=== PATIENT | male | born 1975 | race Caucasian/White ===

== ENCOUNTER 2016-02-18 11:32 | Observation (INO) | payer OTHER ==
[~2016-02-18] VITALS: Ht 193 cm; Wt 97.5 kg
[2016-02-18] VITALS (7 sets, daily range): BP systolic 128–150; BP diastolic 74–96; PULSE 16–82; RESP 16–20; O2SAT 97–99
--- NOTE | 2016-02-18 11:33 | ED.REPORT ---
HPI-Chest Pain 40 and Over Date of Service Feb 18, 2016 ED Provider: Dr. Rider 40 year old male with non-radiating R sided chest pain that has been intermittent for 2 days. At onset of symptoms the patient took 3 ibuprofen which relieved his symptoms. The pain then returned in the morning with an associated headache. The symptoms are exacerbated with laying flat. Today he was seen at the [facility] where he had an ECG which was noted to have ST changes and an elevated troponin. He took 2 ibuprofen this morning and was given 3 ASA at the [facility]. Prior to his chest pain the patient had 3 days of fever, chills and swollen lymph nodes. He currently has no chest pain and denies any other symptoms. Pt's father has a hx of CAD. Nursing Notes Stated Complaint: CHEST PAIN Nursing Notes Reviewed: Yes Allergies: Coded Allergies: No Known Allergies (Unverified , 02/18/16) General Time Seen by MD: 11:33 Chief Complaint Chest pain Hx Obtained From: Patient, EMS Arrived By: Ambulance Sudden in Onset?: No Onset Occurred: 2 days ago Symptom Duration: Since onset Location: : Chest right Quality: Painful Radiation: : Does not radiate Severity: Current: No pain currently Severity: Maximum: Moderate Associated with: Reports: Fever, Denies: Shortness of Breath, Vomiting Pertinent Negative: Relieved by nothing Recent Healthcare: Recent doctor visit Risk Factors )( CAD Risk Stratification Risk factors reviewed )( TAD Risk Stratification Risk factors reviewed )( PE Risk Stratification Risk factors reviewed Past Medical History Past Medical History None Past Surgical History None Smoking History Unknown if Ever Smoker Occupation [place] [employer] Ambulatory Status Independent Review of Systems Basic Review of Systems Eyes: Vision NL, No discharge ENT: Hearing NL, No pain, No nasal congestion, No pharyngeal pain Constitutional: Reports: Chills, Fever Respiratory: Denies: Non-productive cough, Shortness of breath Cardiovascular: Reports: Chest pain, Denies: Palpitations GI: Denies: Diarrhea, Vomiting Neurologic: Reports: Headache, Denies: Change LOC Complete sys rev & neg: except as marked. Physical Exam Initial Vital Signs Vital Signs (First) Date Time Temp Pulse Resp B/P Pulse Ox O2 Delivery O2 Flow Rate FiO2 02/18/16 11:39 36.7 16 16 150/85 02/18/16 13:00 98 Room Air Initial VS: Reviewed Head / Eyes: Atraumatic, Normocephalic, PERRL ENT: Mucous membranes moist, Conjunctiva normal, No scleral icterus Neck: Supple, Non-tender, Full range of motion Extremities: Vascular intact, Neuro intact, No swelling, No tenderness Skin: Warm, Dry, No cyanosis Neurologic: Alert, Oriented, Nonfocal Psychiatric: Mood/affect normal, Behavior normal, Normal thought content General/Constitutional: Awake, Alert Respiratory / Chest: Breath sounds NL, Breath sounds = bilat, No respiratory distress, No rales, No rhonchi, No wheezing, No stridor, No chest tenderness Cardiovascular: Heart rate NL, Regular rhythm, Heart sounds NL, No murmurs, No rubs (No pericardial rub with careful auscultation), Peripheral circulation NL, Pulses = bilaterally Abdomen: Atraumatic, Soft, Non-tender Interpretation & Diagnostics Interpretation & Diagnostics: Echocardiogram: Interpretation Summary 1) Normal left ventricular thickness, size, wall motion, diastolic function, and systolic function (EF 60-65%). 2) Normal right ventricular size and function. 3) No significant valvular abnormalities. 4) No pericardial effusion present. 5) No prior Echo available for comparison. Lab Results Interpretation Result Diagram: 02/18/16 1245 02/18/16 1245 Test 02/18/16 12:45 White Blood Count 10.7th/mm3 (3.8-10.1) Red Blood Count 4.75mil/mm3 (4.40-5.80) Hemoglobin 13.8g/dL (13.8-17.2) Hematocrit 39.6% (41.0-50.0) Mean Corpuscular Volume 83.4fL (81-100) Mean Corpuscular Hemoglobin 29.1pg (27.0-35.0) Mean Corpuscular Hemoglobin Concent 34.8% (32.0-37.0) Red Cell Distribution Width 12.0% (12.3-15.4) Platelet Count 189bil/L (150-400) Neutrophils (%) (Auto) 78.3% (40-74) Lymphocytes (%) (Auto) 14.2% (14-46) Monocytes (%) (Auto) 6.1% (4-12) Eosinophils (%) (Auto) 0.7% (0-5) Basophils (%) (Auto) 0.3% (0-3) Erythrocyte Sedimentation Rate 25mm/hr (0-15) Prothrombin Time 10.1sec (8.1-12.5) Prothromb Time International Ratio 0.95ratio D-Dimer < 0.5mg/L (<0.50) Sodium Level 140mEq/L (134-144) Potassium Level 4.0mEq/L (3.5-5.2) Chloride Level 102mEq/L (97-108) Carbon Dioxide Level 24mmol/L (18-29) Blood Urea Nitrogen 16mg/dL (6-20) Creatinine 0.80mg/dL (0.76-1.27) Estimat Glomerular Filtration Rate 115mL/min (>59) Glucose Level 104mg/dL (60-99) Lactic Acid Level 1.1mmol/L (0.4-2.0) Calcium Level 9.3mg/dL (8.5-10.1) Magnesium Level 1.9mg/dL (1.6-2.6) Total Bilirubin 0.5mg/dL (0.0-1.2) Aspartate Amino Transf (AST/SGOT) 43U/L (0-50) Alanine Aminotransferase (ALT/SGPT) 21U/L (0-44) Alkaline Phosphatase 45U/L (25-150) Total Creatine Kinase 344U/L (21-232) Creatine Kinase MB 28.5ng/mL (0.0-10.4) Creatine Kinase MB % 8.3% (0.0-5.0) Troponin T 0.806ug/L (0.0-0.011) C-Reactive Protein 2.0mg/dL (0.0-0.5) Total Protein 7.6g/dL (6.4-8.4) Albumin 3.9g/dL (3.4-5.0) Hold Ball Top Tube Received (Received) General Lab Results Interp 1: Labs reviewed ECG Interpretation ECG Interpretation: Diffuse minor ST changes, probable pericarditits. Time: 11:40 Interpreted by: ED physician Normal ECG Interpretation: Normal rate (76), Normal sinus rhythm X-Ray Chest Interpretation Chest Xray Interpretation: IMPRESSION: No acute pulmonary process. Dictated by: Shwetha Agosto M.D. on 02/18/2016 at 14:07 View: Portable, 1 view Interpretation / Wet Read by: Interpret - Radiologist Re-Eval/Medical Decision Time of Eval: 12:58 Re-Evaluation/Progress Note: Pt updated of plan for ECHO. Time of Eval: 15:26 Re-Evaluation/Progress Note: Pt still without pain. Pt updated of labs, ECG, imaging and plan for admission. Recommended admission due to elevated troponin. Pt understands and agrees with plan. All questions addressed. Consultation #1: Referral / Consult Name: Izzy De Souza MD Consulted With: Cardiology Call Returned at: 12:47 Note: ECHO would be appropriate in the ED. Consultation #2: Referral / Consult Name: Izzy De Souza MD Consulted With: Cardiology Call Returned at: 15:23 Re Recording Mixer: Will see patient Note: Recommends admission. Consultation #3: Referral / Consult Name: Ivette Fang DO Consulted With: Hospitalist Call Returned at: 15:51 Re Recording Mixer: Will see patient, Agrees with eval, Agrees with plan, Accepts admit Note: Resident working with Dr. Boone Counseled Regarding: Diagnosis, Lab results, Need for admission Discharge & Departure Primary Impression: Acute myopericarditis Ruled Out: Cardiac tamponade, STEMI (ST elevation myocardial infarction) Disposition: ADMITTED TO HOSPITAL Discharge Condition All VS Reviewed: Yes Scribe Attestation Portions of this note were transcribed by Sara Snowden. I, (Dr. Rider) personally performed the history, physical exam and medical decision-making; I reviewed and confirmed the accuracy of the information in the transcribed note. Signed by: Sara Snowden. 02/18/2016, 1541 Pretty Rider MD Feb 18, 2016 11:33 Sara Snowden Feb 18, 2016 11:47 reviewed and confirmed the accuracy of the information in the transcribed note. Signed by: Sara Snowden. 02/18/2016, 1541 Pretty Rider MD Feb 18, 2016 11:33 Sara Snowden Feb 18, 2016 11:47
[2016-02-18 12:52] LABS: BASOPHILS % (AUTO) 0.3 % (0-3); EOSINOPHILS % (AUTO) 0.7 % (0-5); MONOCYTES % (AUTO) 6.1 % (4-12); Mean Corpuscular Hemoglobin 29.1 pg (27.0-35.0); Mean Corpuscular Volume 83.4 fL (81-100); NEUTROPHILS % (AUTO) 78.3 % (40-74); Platelet Count 189 bil/L (150-400)
[2016-02-18 13:23] LABS: Magnesium 1.9 mg/dL (1.6-2.6)
[2016-02-18 13:25] LABS: TROPONIN T 0.806 ug/L (0.0-0.011)
--- NOTE | 2016-02-18 14:09 | DRSVH ---
PROCEDURE: X-RAY CHEST ONE VIEW, PORTABLE ([id number]) INDICATIONS: chest pain TECHNIQUE: One view of the chest was acquired. COMPARISON: None. FINDINGS: Surgical changes and devices: None. Lungs and pleura: No pleural effusions or pneumothorax. Lungs are clear. Mediastinum: Mediastinal contours appear normal. Heart size is normal. Bones and chest wall: No suspicious bony lesions. Overlying soft tissues appear unremarkable. IMPRESSION: No acute pulmonary process. Dictated by: Shwetha Agosto M.D. on 02/18/2016 at 14:07 Approved by: Shwetha Agosto M.D. on 02/18/2016 at 14:07
--- NOTE | 2016-02-18 15:21 | DRSVH ---
[facility] [address] [place] [address] Echocardiogram Report Name: KAYLENE CASTILLO te: 02/18/2016 Height: 76 in Hospital Exam Location: [facility] Weight: 223 lb Gender: Male BSA: 2.3 m2 : 1975 Age: 40 yrs BP: 150/85 mm Hg Reason For Study: CHEST PAIN, EVAL FOR POSSIBLE PERICARDITIS Performed By: Quyen Mckay Referring Physician: AMARI RAMIREZ Interpretation Summary 1) Normal left ventricular thickness, size, wall motion, diastolic function, and systolic function (EF 60-65%). 2) Normal right ventricular size and function. 3) No significant valvular abnormalities. 4) No pericardial effusion present. 5) No prior Echo available for comparison. Procedure: A two-dimensional transthoracic echocardiogram with color flow and Doppler was performed. The study quality was technically adequate. There is no prior echocardiogram noted for this patient. The patient was in normal sinus rhythm during the exam. Left Ventricle: The left ventricle is normal in size, wall thickness, and systolic function without any focal wall motion abnormalities. The ejection fraction is estimated to be 60-65%. Spectral Doppler of the mitral valve shows a normal E/A wave ratio. Assessment of diastolic parameters indicates normal left ventricular diastolic function and normal filling pressures. Right Ventricle: The right ventricle is normal size. Atria: The left atrium is moderately dilated. Right atrial size is normal. There is no Doppler evidence for an atrial septal defect. Mitral Valve: The mitral valve leaflets appear normal. There is no evidence of stenosis, fluttering, or prolapse. There is trace mitral regurgitation. Aortic Valve: The aortic valve is trileaflet. The aortic valve opens well. There is no aortic valve stenosis. No aortic regurgitation is present. Tricuspid Valve: The tricuspid valve leaflets are thin and pliable. There is trace tricuspid regurgitation. The right ventricular systolic pressure is estimated at 27 mmHg assuming a right atrial pressure of 3 mm Hg. Pulmonic Valve: The pulmonic valve is not well seen, but is grossly normal. There is no pulmonic valvular regurgitation. Great Vessels: The aortic root is normal size. The dimensions of the ascending aorta are normal. The pulmonary artery is normal size. The IVC is of normal diameter and collapses greater than 50% with a sniff. This suggests a low right atrial pressure of 3 mm Hg. Pericardium/ Pleura There is no pericardial effusion. There is no pleural effusion. MMode/2D Measurements & Calculations LVIDd: 5.2 cm LA dimension: 4.1 cm RA long axis LVOT diam: 2.2 cm LVIDs: 3.5 cm AoV Openin.4 cm FS: 33.4 % LA A2 area: 25.8 cm RA area Ao root diam: 3.1 cm IVSd: 0.90 cm LA A4 area: 25.6 cm asc Aorta Diam LVPWd: 0.97 cm LA length (vol) : 21.4 cm RA vol Ao Arch Diam LA vol: 104.4 ml : 69.4 ml (Proximal trans.) LA vol index RA : 29.9 mm/ RVDd major IVC diam: 1.6 cm RVDd minor : 3.7 cm LV erickson. diameter/BSALV sys. diameter/BSA (cm/m^2): 2.3 (cm/m^2): 1.5 Doppler Measurements & Calculations Ao V2 max MV E max jesus MV E/A: 1.6 TR max jesus : 166.2 cm/sec : 114.5 cm/sec Pulm A Revs : 247.0 cm/sec Ao max P.0 mmHg MV A max jesus Dur: 0.14 sec TR max PG Ao mean P.8 mmHg : 72.7 cm/sec MV A dur : 24.4 mmHg LVOT Max Jesus MV P1/2t: 63.5 msec : 0.14 sec PA V2 max : 143.1 cm/sec : 114.0 cm/sec LUZ(I,D): 3.5 cm PA mean PG sev ratio: 0.91 PA Accel Time : 0.16 sec MV P1/2t max jesus Ao V2 mean LV V1 max PG PA V2 mean : 114.1 cm/sec : 73.2 cm/sec MVA(P1/2t): 3.5 cm2 Ao V2 VTI: 30.4 cm LV V1 VTI LUZ(V,D): 3.4 cm2 : 27.5 cm LUZ indexed to BSA Pulm Harpreet Rosss Dur - MV A (cm^2/m^2): 1.5 Dur: 0.00 msec Reading Physician:03:20 PM
[2016-02-18] MEDS ORDERED: Polyethylene Glycol (PEG) 17 Gm Powder PO PRN (17:35)
[2016-02-18] MEDS ORDERED: Alum-Mag Hydrox-Simeth 30 mL Suspension PO PRN (17:35)
[2016-02-18] MEDS ORDERED: Ondansetron 2 mg/mL 2 mL Inj IVPUSH PRN (17:35)
[2016-02-18 17:54] LABS: INR 0.95 ratio
--- NOTE | 2016-02-18 18:10 | NUR ---
Admit PT admitted to [facility] from ER at 1745. MD's rounding now, venous duplex being completed now. Vitals stable, Tele placed and is in SR 75, A&Ox3, Catrachita in room, No skin issues from what I can see, fiance at the bedside. SOFTWARE ENGINEERING ASSOCIATE MANAGER oriented pt to room and call light. Admit to be completed as soon as venous duplex is done. Dinner ordered.
--- NOTE | 2016-02-18 19:18 | DRSVH ---
PROCEDURE: US VENOUS LEG DUPLEX BILATERAL INDICATIONS: DVT TECHNIQUE: Real-time imaging, as well as color and pulse Doppler interrogation, were performed of the deep veins of both legs from the inguinal ligament to the popliteal fossa. COMPARISON: None. FINDINGS: The deep veins are normally compressible, and free of intraluminal thrombus. Color and pu lse Doppler demonstrate normal phasic intravascular flow. There is normal augmentation response to d istal compression maneuver. IMPRESSION: No evidence of deep vein thrombosis involving the right or left lower extremities. Dictated by: Tg Arroyo MD, PhD on 02/18/2016 at 19:17 Approved by: Tg Arroyo MD, PhD on 02/18/2016 at 19:17
[2016-02-18] MEDS: Pantoprazole 20 mg ER24 Tablet PO SCH (20:20)
--- NOTE | 2016-02-18 20:26 | PCM.HPMED ---
Subjective Date of Service Feb 18, 2016 Primary Provider: Admitting Physician: Yolette Boone MD Primary Care Physician: Other,Physician Attending Physician: Yolette Boone MD Chief Complaint: Chest pain History of Present Illness: HPI This is a 40 year old male with no significant past medical history flew back from [place] on the . He says he sat next a woman that that was coughing on the plane. 2 days after he got back he started getting body aches and a fever of 103, and a sore throat. Patient took Tylenol, ibuprofen, and Theraflu, and these symptoms resolved 2 days later. He then began having a headache as well as right sided non radiating dull chest pain. The chest pain was intermittent, not reproducible, not exertional or positional. Awoke this morning with the chest pain, took ibuprofen and went to the [facility], where his troponin was .76 and he was given 3 aspirin. He then came to [facility] ED troponin was .8 here. He is currently without symptoms. Review of Systems: A comprehensive review of systems was conducted with the patient and found to be negative except as above in the History of Present Illness. Allergies Coded Allergies: No Known Allergies (Unverified , 02/18/16) [facility] No medical problems Surgical History Family History Father with NSTEMI at 65 y/o, mother with HTN and obesity Social History Hx Alcohol Use: Yes (4 beers a weekend) Hx Substance Use: No Smoking Status: Unknown if Ever Smoker Living Arrangement: with Family Additional Information [place] [employer], lives with girlfriend and teenagers Exam Vital Signs Vital Sign - Last Date Time Temp Pulse Resp B/P Pulse Ox O2 Delivery O2 Flow Rate FiO2 02/18/16 18:10 75 02/18/16 18:02 37.7 18 128/77 97 Room Air Exam General: No acute distress, well-developed, well-nourished, appropriately interactive HEENT: Normocephalic, atraumatic. External ears without defect. Pupils equal, round, and reactive to light and accommodation. Anicteric sclerae, moist conjunctivae, and no lid lag. Oropharynx free of erythema and cobble stoning with moist mucosa. Neck: Supple with full range of motion. No jugular venous distension. No bruits. No lymphadenopathy or thyromegaly. Cardiovascular: Regular rate and rhythm with no murmurs, rubs, or gallops appreciated Pulmonary: Clear to auscultation bilaterally with no crackles, wheezes, or rhonchi. Normal respiratory effort with no use of accessory muscles. Abdomen: Soft, nontender, nondistended. No hepatosplenomegaly or masses appreciated. Extremities: No clubbing, cyanosis, edema, or lymphadenopathy appreciated. Skin: Normal temperature, turgor, and texture; no rash, ulcers, or subcutaneous nodules appreciated. Neurological: Cranial nerves grossly intact. Normal muscle strength, tone, and bulk. Reflexes, coordination, and sensory function within normal limits. No known gait impairment. Psychiatric: Normal mood and affect. Alert and oriented to person, place, and time. Lab and Diagnostics Result Diagram: 02/18/16 1245 02/18/16 1245 X-Rays, CTs and MRIs X-RAY CHEST ONE VIEW, PORTABLE IMPRESSION: No acute pulmonary process. Dictated by: Shwetha Agosto M.D. on 02/18/2016 at 14:07 Cardiac Echo Impressions Echocardiogram Report Interpretation Summary 1) Normal left ventricular thickness, size, wall motion, diastolic function, and systolic function (EF 60-65%). 2) Normal right ventricular size and function. 3) No significant valvular abnormalities. 4) No pericardial effusion present. 5) No prior Echo available for comparison. Additional Diagnostics: US VENOUS LEG DUPLEX BILATERAL IMPRESSION: No evidence of deep vein thrombosis involving the right or left lower extremities. Dictated by: Tg Arroyo MD, PhD on 02/18/2016 at 19:17 Assessment & Plan 40 year old male with non-radiating R sided chest pain that has been intermittent for 2 days. At onset of symptoms the patient took 3 ibuprofen which relieved his symptoms. The pain then returned in the morning with an associated headache. Notably he just arrived from [place] from a 3 hour flight. The symptoms are exacerbated with laying flat. Today he was seen at the [facility] where he had an ECG which was noted to have ST changes and an elevated troponin. He took 2 ibuprofen this morning and was given 3 ASA at the [facility]. Prior to his chest pain the patient had 3 days of fever, chills and swollen lymph nodes. He currently has no chest pain and denies any other symptoms. 1. Acute Chest Pain, present on admission, Stable. - DDX: Pericarditis, PE, ACS, myocarditis. - If you count the 3 hour flight as immobilization, then his Wells score is 1.5 , with a negative D-Dimer. Making PE unlikely. - Trending Tropes Q8H - 0.806 on admission. - EKG nml sinus rhythm, no ST elevation / depression. Repeat EKG if he experiences any chest pain. - CXR per above. - ECHO per above. - D-dimer 0.5 - Lactic acid 1.1. - CK/CKMB 28.5 / 344. - CRP 2.0, ESR - 25. WBC - 10.7 - Venous US LE results per above. - Viral Resp PCR pending. - UA pending. - Ibuprofen PRN. - On tele monitoring. - Cardiology following, time and recommendations appreciated. - Start Colchicine 0.6 mg BID daily. Acetaminophen for mild pain when necessary. Bowel regimen Senna and MiraLAX scheduled and PRN. Zofran when necessary for nausea and vomiting. Ambien for sleep aid PRN. SubQ heparin held for now. SCDs in place. High-risk medications: NONE. Disposition: Observation as of now. Pain Evaluation: Adequate Pain Control Resuscitation Status: CPR: Attempt Resuscitation Attending Statement The patient was seen and examined together with Dr. Poon on 02-18-16 and I agree with the history, exam and plan as outlined in the note above. MILAGRO POON DO Feb 18, 2016 20:02 Yolette Boone MD Feb 19, 2016 15:31
[2016-02-19] VITALS (8 sets, daily range): BP systolic 126–151; BP diastolic 72–101; PULSE 61–87; RESP 15–20; O2SAT 97–99
--- NOTE | 2016-02-19 | CONS ---
[address] [address] CONSULTATION REPORT PATIENT: KAYLENE CASTILLO : 1975 MR#: [id number] ADMIT: 02/18/2016 JOB ID: [id number] DATE OF SERVICE: 02/18/2016 CHIEF COMPLAINT: Chest pain. HISTORY OF PRESENT ILLNESS: The patient is a 40-year-old man who says he was doing fine until around February 12 when he developed severe fever and chills, muscle aches and lassitude. Of note, a few days prior to that event, he was on an airplane sitting next to a woman who was apparently ill and coughing. His notes that his temperature reached a T-max of 104 degrees Fahrenheit. After a few days of conservative management at home including cool baths and Tylenol and ibuprofen, he was starting to feel better and then, unfortunately, about 48 hours ago he started to develop right-sided chest discomfort. It is sharp, not activity related. It is not additional. It comes and goes and Cardiology is consulted to assist with management in light of elevated troponin. He says his current chest discomfort is improved by taking ibuprofen. PAST MEDICAL HISTORY: None. PAST SURGICAL HISTORY: None. SOCIAL HISTORY: Does not smoke. 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 He is accompanied by his at bedside. FAMILY HISTORY: His father had a heart attack in the "back of the heart" and required a stent and now feels much better. Father was in his 60s when this happened. REVIEW OF SYSTEMS: Headache, chest pain on the right side. Otherwise, 10 point review of systems is negative. PHYSICAL EXAMINATION: Vital signs: Temperature 36.7, blood pressure 150/85, his pulse on examination was 95 beats per minute and he was satting 98% on room air. This is a very pleasant man, sitting in bed, in no apparent distress. Eyes: No scleral icterus. Neck is supple. No carotid bruits. Heart: Normal S1, S2. No murmurs. Lungs: Clear to auscultation. His abdomen is soft, positive bowel sounds. Extremities: Warm and well perfused. No clubbing, cyanosis, or edema. Skin with no rashes or edema. Echocardiogram reviewed by me personally shows normal LV size, wall thickness, wall motion, and LV systolic function. Chest x-ray showed no acute cardiopulmonary process. Leg ultrasound shows no evidence of DVT. EKG shows normal sinus rhythm at 76 beats per minute. Normal axis. No left ventricular hypertrophy. He has subtle ST elevation in leads II, III and aVF. No reciprocal ST depression. ASSESSMENT/PLAN: In summary, this is a 40-year-old man. He says he has chest pain that is quite mild and right-sided and nonexertional. His labs show the troponin T is 0.8 and it was most recently going up at 1.09. I offered the patient cardiac catheterization, but he declined. He understands the risks of doing so. So, we are going to treat him for presumed pericarditis even though I explained to him in very uncertain terms that we cannot rule out coronary artery disease without invasive workup. So, since he declined catheterization, I am going to sign off now. I agree with the medical management instituted by the primary team of colchicine and ibuprofen to palliate possible pericarditis recognizing that he does not have pericardial effusion and his EKG pattern is not classic for pericarditis. Again, I had a very comprehensive discussion about the risks, benefits and alternatives of catheterization with the patient, and he was quite emphatic that he did not want to go through with it. Thank you for the opportunity to evaluate him. NELY
[2016-02-19 06:28] LABS: BASOPHILS % (AUTO) 0.2 % (0-3); EOSINOPHILS % (AUTO) 0.9 % (0-5); MONOCYTES % (AUTO) 7.2 % (4-12); Mean Corpuscular Hemoglobin 29.4 pg (27.0-35.0); Mean Corpuscular Volume 84.3 fL (81-100); NEUTROPHILS % (AUTO) 63.7 % (40-74); Platelet Count 210 bil/L (150-400)
--- NOTE | 2016-02-19 06:29 | NUR ---
Cardiac Pt states he is not in pain but can feel a discomfort in chest that has improved since before he came to the hospital. Pt requesting ibuprofen to "help with the possible inflammation in my chest" Pt Troponin levels Q8 and have trended up. notified and no new orders at this time. VSS and Tele SR
[2016-02-19] MEDS: Pantoprazole 20 mg ER24 Tablet PO SCH ×2 (08:30→20:30)
--- NOTE | 2016-02-19 13:51 | PROG NOTE ---
[address] [address] PROGRESS NOTE PATIENT: KAYLENE CASTILLO : 1975 MR#: [id number] ADMIT: 02/18/2016 JOB ID: [id number] DATE: 02/19/2016 SUBJECTIVE: The patient says he is feeling better this morning. He declines stress test. He declines cardiac catheterization. He desires to be discharged once his troponin peaks. OBJECTIVE: Vital signs: Temperature 37.1, blood pressure 126/84, up to 151/92, pulse 66 up to 87 beats per minute. He is satting 97%-99% on room air. His telemetry shows no events. His examination shows well-nourished man in no apparent distress. Eyes: No scleral icterus. Heart: Normal S1, S2. No murmurs, rubs or gallops. Lungs are clear to auscultation anteriorly. Abdomen is soft, positive bowel sounds. No hepatosplenomegaly. Extremities: Warm, well perfused. No clubbing, cyanosis or edema. Skin: No rashes or lesions. ASSESSMENT AND PLAN: This is a 40-year-old man admitted with atypical chest pain and elevated troponin T and ST elevation in inferior leads. He has no obvious CAD risk factors, other than father who had a recent non STEMI. His troponin T peaked at 1.15. His echocardiogram shows no focal wall motion abnormalities and this problem was preceded by a viral illness. I suspect he has viral myocarditis and it is actually fairly mild because his ejection fraction is normal. I told the patient that the etiology of myocarditis is very difficult to identify given that he had a preceding fever, chills and malaise. It is possible that this is viral myocarditis. Could be due to adenovirus or Coxsackie B virus. I think we can do a nasopharyngeal swab that could look for adenovirus. It does not test for Coxsackie B virus but it also tests for influenza. He is doing okay on ibuprofen and colchicine 0.5 mg twice a day. The standard dose for pericarditis is 0.5 twice a day for individuals weighing over 70 kg and the recommendation is to continue this medicine for three months. The patient declined catheterization. He declined a stress test. I think the pretest probability is low, but still I think it is reasonable to check his cholesterol and have a low threshold to do a viral PCR. I also took the liberty of ordering BNP. 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 So, I shared my concern with him. He was optimistic that he will be permitted to return to his current occupation and I certainly hope so, but in the interim will make him a follow up appointment to gauge his symptom progression and also to be there for him if he needs any additional workup to be able to return back to work. Thank you for the opportunity to evaluate him.
--- NOTE | 2016-02-19 17:32 | NUR ---
Chest PT denies chest pain and discomfort. He states he feels something different in his chest but doesn't know how to describe it. He has Ibprophen Q6 on board and has taken it once. He states his pain is unchanged since the pain. Docs aware and asked to get EKG if any chest pain or pressure comes up.
--- NOTE | 2016-02-19 20:38 | PCM.PNMED ---
Subjective Date of Service Feb 19, 2016 Subjective HPI This is a 40 year old male with no significant past medical history flew back from [place] on the . He says he sat next a woman that that was coughing on the plane. 2 days after he got back he started getting body aches and a fever of 103, and a sore throat. Patient took Tylenol, ibuprofen, and Theraflu, and these symptoms resolved 2 days later. He then began having a headache as well as right sided non radiating dull chest pain. The chest pain was intermittent, not reproducible, not exertional or positional. Awoke this morning with the chest pain, took ibuprofen and went to the [facility], where his troponin was .76 and he was given 3 aspirin. He then came to [facility] ED troponin was .8 here. He is currently without symptoms. Overnight Events: Mr. Lazaro Todd had an event of very mild chest pain. No EKG. Today: Mr. Lazaro Todd he was sitting comfortably on the couch with his at his side. We answered his thoughtful questions. He reports that he feels better than the day prior. He denies headache, dizziness, sore throat, cough, chest pain, shortness of breath, abdominal pain, nausea, vomiting, constipation , and diarrhea. The patient is voiding and eliminating without difficulty. The patient is ambulating without difficulty. Exam Vital Signs Vital Sign - Last Date Time Temp Pulse Resp B/P Pulse Ox O2 Delivery O2 Flow Rate FiO2 02/19/16 04:33 66 02/19/16 04:14 37.3 20 126/84 97 Room Air Intake and Output 02/18/16 02/18/16 02/19/16 Cumulative From/Thru 15:00 23:00 07:00 02/18/16 11:39 - 02/19/16 04:19 Intake Total 690 ml 690 ml Output Total 175 ml 175 ml Balance -175 ml 690 ml 515 ml Intake Oral 690 ml 690 ml Output Urine Total 175 ml 175 ml # Voids 1 4 5 Exam General: No acute distress, well-developed, well-nourished, appropriately interactive HEENT: Normocephalic, atraumatic. External ears without defect. Pupils equal, round, and reactive to light and accommodation. Anicteric sclerae, moist conjunctivae, and no lid lag. Oropharynx free of erythema and cobble stoning with moist mucosa. Neck: Supple with full range of motion. No jugular venous distension. No bruits. No lymphadenopathy or thyromegaly. Cardiovascular: Regular rate and rhythm with no murmurs, rubs, or gallops appreciated Pulmonary: Clear to auscultation bilaterally with no crackles, wheezes, or rhonchi. Normal respiratory effort with no use of accessory muscles. Abdomen: Soft, nontender, nondistended. No hepatosplenomegaly or masses appreciated. Extremities: No clubbing, cyanosis, edema, or lymphadenopathy appreciated. Skin: Normal temperature, turgor, and texture; no rash, ulcers, or subcutaneous nodules appreciated. Neurological: Cranial nerves grossly intact. Normal muscle strength, tone, and bulk. Reflexes, coordination, and sensory function within normal limits. No known gait impairment. Psychiatric: Normal mood and affect. Alert and oriented to person, place, and time. IVs and Medications Medications Reviewed: Medications were reviewed in detail Lab and Diagnostics Result Diagram: 02/19/16 0000 02/19/16 0000 X-Rays, CTs and MRIs X-RAY CHEST ONE VIEW, PORTABLE IMPRESSION: No acute pulmonary process. Dictated by: Shwetha Agosto M.D. on 02/18/2016 at 14:07 Cardiac Echo Impressions Echocardiogram Report Interpretation Summary 1) Normal left ventricular thickness, size, wall motion, diastolic function, and systolic function (EF 60-65%). 2) Normal right ventricular size and function. 3) No significant valvular abnormalities. 4) No pericardial effusion present. 5) No prior Echo available for comparison. Additional Diagnostics US VENOUS LEG DUPLEX BILATERAL IMPRESSION: No evidence of deep vein thrombosis involving the right or left lower extremities. Dictated by: Tg Arroyo MD, PhD on 02/18/2016 at 19:17 Assessment & Plan 40 year old male with non-radiating R sided chest pain that has been intermittent for 2 days. At onset of symptoms the patient took 3 ibuprofen which relieved his symptoms. The pain then returned in the morning with an associated headache. Notably he just arrived from [place] from a 3 hour flight. The symptoms are exacerbated with laying flat. Today he was [place] [employer] [facility] where he had an ECG which was noted to have ST changes and an elevated troponin. He took 2 ibuprofen this morning and was given 3 ASA [facility] [employer] [facility]. Prior to his chest pain the patient had 3 days of fever, chills and swollen lymph nodes. He currently has no chest pain and denies any other symptoms. 1. Acute Pericarditis, present on admission, Stable. - If you count the 3 hour flight as immobilization, then his Wells score is 1.5 , with a negative D-Dimer. Making PE unlikely. - Trending Tropes Q8H - 0.806 on admission. 1.15, down to 0.870 - EKG nml sinus rhythm, no ST elevation / depression. Repeat EKG if he experiences any chest pain. - CXR per above. - ECHO per above. - D-dimer 0.5 - Lactic acid 1.1. - CK/CKMB 28.5 / 344. - CRP 2.0, ESR - 25. WBC - 10.7 - Venous US LE results per above. - Viral Resp PCR negative. - UA per above. - Ibuprofen PRN. - On tele monitoring. - Cardiology following, time and recommendations appreciated. - Colchicine 0.6 mg BID daily. (Started 02/18/16) - Stay overnight and trend troponins. Repeat EKG if patient experiences chest pain or just repeat in the AM. 2. Cannot rule out ischemic heart disease. Present on admission. Active. - Cardiology offered a stress test and cardiac catheterization. Mr. Lazaro Todd refused the test. - EKG shows normal sinus rhythm without ST elevations / depressions. Acetaminophen for mild pain when necessary. Bowel regimen Senna and MiraLAX scheduled and PRN. Zofran when necessary for nausea and vomiting. Ambien for sleep aid PRN. SubQ heparin held for now. SCDs in place. High-risk medications: NONE. Disposition: Observation as of now. Pain Evaluation: Adequate Pain Control VTE Mechanical Devices: Intermittant Pneumatic CD Resuscitation Status: CPR: Attempt Resuscitation Attending Statement The patient was seen and examined together with Dr. Poon on 02-19-16 and I agree with the history, exam and plan as outlined in the note above. MILAGRO POON DO Feb 19, 2016 06:47 Yolette Boone MD Feb 20, 2016 16:40
[2016-02-20 04:14] VITALS: BP 149/106; PULSE 78; RESP 16; O2SAT 100
[2016-02-20 04:33] LABS: Mean Corpuscular Hemoglobin 28.7 pg (27.0-35.0); Mean Corpuscular Volume 83.8 fL (81-100)
--- NOTE | 2016-02-20 04:37 | NUR ---
Cardiac Pt reported an increase in chest discomfort that was similar to before he came in. Pt stated burning sensation 05/23. EKG ordered and showed Normal SR and no changes from previous EKG. Administered 400mg Ibuprofen and effective. notified and no new orders at this time. VSS and Tele SR
[2016-02-20 05:18] LABS: TROPONIN T 0.962 ug/L (0.0-0.011)
[2016-02-20 05:21] VITALS: PULSE 72
[2016-02-20 07:51] VITALS: BP 133/89; PULSE 69; RESP 16; O2SAT 99
[2016-02-20] MEDS: Pantoprazole 20 mg ER24 Tablet PO SCH (08:00)
[2016-02-20 09:55] VITALS: PULSE 80
--- NOTE | 2016-02-20 11:28 | PCM.PNCARD ---
Subjective Date of service Feb 20, 2016 Chief Complaint Chest pain History of Present Illness This is a 40 y/o male who presents to [facility] with chest pain and elevated troponins. 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 Overall, he continues to slowly improve but still had some chest pain last night which was relieved with ibuprofen. His troponins haven been in the range of 0.8-1.2. He was tentatively scheduled for Lexiscan sestamibi this morning after he refused a LHC but he refused that as well and now is reconsidering a C. 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 Constitutional: Denies: Chills, Fever ENT: Denies: Ear Pain Eyes: Denies: Blurred Vision, Conjunctive Inflammation Cardiovascular: Reports: Chest Pain Respiratory: Denies: Cough, Cough with bloody sputum Gastrointestinal: Denies: Abdominal Pain, Blood in stool (red) Genitourinary: Denies: No burning or pain with urination Musculoskeletal: Denies: Ankle Pain, Back Pain Skin: Denies: Blisters Neurological: Denies: Confusion Endocrine: Reports: Blood Glucose Review Exam Vital Signs Vital Sign - Last Date Time Temp Pulse Resp B/P Pulse Ox O2 Delivery O2 Flow Rate FiO2 02/20/16 09:55 80 02/20/16 07:51 36.8 16 133/89 99 Room Air Intake and Output 02/19/16 02/19/16 02/20/16 Cumulative From/Thru 15:00 23:00 07:00 02/18/16 11:39 - 02/20/16 06:04 Intake Total 1036 ml 800 ml 2526 ml Output Total 1500 ml 600 ml 2275 ml Balance -464 ml 200 ml 251 ml Intake Oral 1036 ml 800 ml 2526 ml Output Urine Total 1500 ml 600 ml 2275 ml # Voids 2 7 General: Pleasant Cooperative Skin: Warm & dry to touch Head: Normocephalic Chest: Clear auscultation w/o rales/wheeze Cardiac: Regular rhythm Neurological: Alert & oriented Psychological: Affect & interaction appropriate Memory grossly intact Lab and Diagnostics Result Diagram: 02/20/16 0415 02/20/16 0415 Assessment & Plan Problems: (1) Acute myopericarditis Plan: Most likely perimyocarditis secondary to recent flu. 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 I have offered him a LHC this Monday. He is willing to proceed with it unless his flight doctor says that they will definitely clear him to fly if symptoms and troponins resolve over the next 3-4 weeks. Also, recommend to stop troponin orders since this will not record changer at this point. Continue with ibuprofen and colchicine with tapering of his ibuprofen on a weekly basis. If schedule is terribly busy on Monday then I would feel comfortable scheduling his LHC as an outpatient later next week. Patient agrees with the plan and will keep us up to date on what his flight doctor recommends. Status: Acute ICD Code: I30.9 (2) Pericarditis Qualifiers: Pericarditis type: infectious Infectious pericarditis etiology: viral Chronicity: acute Qualified Code: I30.1 - Infective pericarditis Status: Acute ICD Code: I31.9 Cardiology Plan: Catherization, Lipid assessment & treatment Pain Evaluation: Adequate Pain Control VTE Mechanical Devices: Intermittant Pneumatic CD Resuscitation Status: CPR: Attempt Resuscitation Time spent 30 minutes spent going various options in this young man's care. Preston Wolff MD Feb 20, 2016 11:28
[2016-02-20 12:09] VITALS: BP 150/93; PULSE 67; RESP 16; O2SAT 97
[2016-02-20] MEDS ORDERED: IBUP400T22 PO ×4 (14:29→14:48)
[2016-02-20] MEDS ORDERED: COLC0.6T52 PO ×2 (14:29→15:04)
[2016-02-20] MEDS ORDERED: FAMO20TA4 PO (14:29)
--- NOTE | 2016-02-20 14:31 | PCM.DIMED ---
Ivette Fang DO 02/20/16 1431: Discharge Instructions Date of Service Feb 20, 2016 Dates of Hospitalization Feb 18, 2016 at 15:51 Discharge Diagnosis Discharge Diagnosis Acute pericarditis, present on admission. Active and treating. Cannot rule out ischemic heart disease, present on admission. Active. - Cardiology recommended left heart catheterization and angiogram for which the patient declined. - The patient was offered a exercise stress test with MIBI for which he declined. . Medication Instructions New medications: Colchicine 0.6 mg twice a day x3 months. Ibuprofen taper: 800 mg 3 times a day x1 week, 800 mg twice a day x1 week, 400 mg twice a day x1 week, and 400 mg once daily x1 week then stop. . Diet Heart Healthy Activity Limited until seen by PCP Call your provider Shortness of breath, Chest pain Patient Instructions Follow-up plan Please follow-up closely with you primary care physician, Dr. Quan Benavides, within the next one week regarding your hospitalization and management of your pericarditis and referral to a finisher machine. [facility] is recommending a left heart catheterization to rule out ischemic heart disease for which you declined at this time. From a medical standpoint we recommend at the very least an exercise stress test with or without MIBI in the near future. Cardiology recommends continued medical management for pericarditis with colchicine 0.6 mg twice a day x3 months and an ibuprofen taper over the next 4 weeks. If you have any recurrent and worsening of chest pain or other symptoms of a heart attack including: pain in the area between shoulder blades, arm, chest, jaw, left arm, or upper abdomen, or dizziness, fatigue, lightheadedness, clammy skin, cold sweat or sweating, heartburn, indigestion, nausea, or vomiting DO NOT HESITATE and go immediately to the nearest ER or hospital. . Follow-up Provider: [facility] Yolette Boone MD 02/29/16 0829: Discharge Instructions Attending's Statement The patient was seen and examined together with Dr. Fang on 02-20-16 and I agree with the history, exam and plan as outlined in the note above. Ivette Fang DO Feb 20, 2016 14:31 Yolette Boone MD Feb 29, 2016 08:29
[2016-02-20] MEDS ORDERED: IBUP800T28 PO (14:48)
--- NOTE | 2016-02-20 15:34 | NUR ---
Social Work Screening/Discharge D: EMR reviewed. Pt is a 40Y old male Nanci for Pericarditis, Elevated Trop. Insurance is [employer]. PCP is [facility]. Cardiology recommending work up, Pt declining at this time. Per EMR, Pt lives at home with his spouse independently. 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 Pt is discharging home today via POV. No discharge needs identified. A: Pt who is independent at baseline P: Pt lives at home with his spouse independently. 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 Pt is discharging home today via POV. No discharge needs identified. RETA Quinones
--- NOTE | 2016-02-20 15:34 | NUR ---
Discharge Pt. discharged at ~1520 with significant other and took all belongings with him. Pt. given educational material on new prescribed med., Pt. instructed to follow up with Octavio and Pt. stated he will make an appointment.
--- NOTE | 2016-02-20 17:41 | PCM.DC.MED ---
Discharge Summary Date of Service Feb 20, 2016 Dates of Hospitalization Date of Hospital Admission Feb 18, 2016 at 15:51 Date of Discharge: Feb 20, 2016 Providers: Admitting Physician: Yolette Boone MD Primary Care Physician: Rafa Valentine Attending Physician: Yolette Boone MD Diagnosis at Time of Discharge Diagnosis at Time of Discharge Acute pericarditis, present on admission. Active and treating. Cannot rule out ischemic heart disease, present on admission. Active. - Cardiology recommended left heart catheterization and angiogram for which the patient declined. - The patient was offered a exercise stress test with MIBI for which he declined. . Consultations Cardiology, Dr. Izzy De Souza. . Procedures XRay, CTs & MRIs X-RAY CHEST ONE VIEW, PORTABLE IMPRESSION: No acute pulmonary process. Dictated by: Shwetha Agosto M.D. on 02/18/2016 at 14:07 . Cardiac Echo Impression Echocardiogram Interpretation Summary: 1) Normal left ventricular thickness, size, wall motion, diastolic function, and systolic function (EF 60-65%). 2) Normal right ventricular size and function. 3) No significant valvular abnormalities. 4) No pericardial effusion present. 5) No prior Echo available for comparison. . Other Diagnostics US VENOUS LEG DUPLEX BILATERAL IMPRESSION: No evidence of deep vein thrombosis involving the right or left lower extremities. Dictated by: Tg Arroyo MD, PhD on 02/18/2016 at 19:17 Brief History Per HPI by Dr. Medina on 02/18/16: This is a 40 y/o male who presents to [facility] with chest pain and elevated troponins. 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 Overall, he continues to slowly improve but still had some chest pain last night which was relieved with ibuprofen. His troponins haven been in the range of 0.8-1.2. He was tentatively scheduled for Lexiscan sestamibi this morning after he refused a LHC but he refused that as well and now is reconsidering a LHC. 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 . Hospital Course Lazaro Todd is a 40-year-old male who presented to [facility] via EMS for non-radiating right sided chest pain and elevated troponin's who was admitted for ACS rule out. 1. Acute pericarditis, present on admission. Active and treating. - If you count the 3 hour flight as immobilization and decreased mobility during acute illness the patients Well's score is 1.5 and a negative D-Dimer which makes PE unlikely. - Trended tropinin every eight hours: Initial on admission 0.806. Trend 1.09, 1.15, 0.870, 1.13, 0.962. - EKG normal sinus rhythm, no ST elevation or depression. Repeat EKG if he experiences any chest pain. - Chest x-ray showed no acute cardiopulmonary findings as above. - Echocardiogram within normal limits as above. - Initial labs: D-dimer 0.5, lactic acid 1.1, CK/CKMB 28.5 / 344, CRP 2.0, ESR 25, and WBC 10.7. - Venous Doppler of LE showed no DVT, as above. - Viral Resp PCR negative, as above. - UA negative as above. - Repeat EKG performed when patient experienced chest pain and another on second day of admission showed no change and normal sinus rhythm without ST elevations / depressions. - Ibuprofen taper started at time of discharge: 800 mg 3 times a day x1 week, 800 mg twice a day x1 week, 400 mg twice a day x1 week, and 400 mg once daily x1 week then stop. - Continued colchicine 0.6 mg BID daily x 3 months (started 02/18/16). - Cardiology followed throughout hospitalization. We appreciated their time and recommendations. 2. Cannot rule out ischemic heart disease, present on admission. Active. - Cardiology recommended left heart catheterization and angiogram for which the patient declined. - The patient was offered an exercise stress test with MIBI for which he declined. - All EKG's performed showed normal sinus rhythm without ST elevations / depressions. . Exam Vital Signs (Last) Date Time Temp Pulse Resp B/P Pulse Ox O2 Delivery O2 Flow Rate FiO2 02/20/16 12:09 37.1 67 16 150/93 97 Room Air Exam General: Middle-aged gentleman lying in bed and in no acute distress, well- developed, well-nourished, appropriately interactive. HEENT: Normocephalic, atraumatic. External ears without defect. Pupils equal, round, and reactive to light. Anicteric sclerae, moist conjunctivae, and no lid lag. Oropharynx free of erythema and cobble stoning with moist mucosa. Neck: Supple with full range of motion. No jugular venous distension. No bruits. No lymphadenopathy or thyromegaly. Cardiovascular: Regular rate and rhythm with no murmurs, rubs, or gallops appreciated. Pulmonary: Clear to auscultation bilaterally without crackles, wheezes, or rhonchi. Normal respiratory effort with no use of accessory muscles. Abdomen: Soft, nontender, nondistended, bowel sounds are present. No hepatosplenomegaly or masses appreciated. Extremities: No clubbing, cyanosis, or edema. Skin: Normal temperature, turgor, and texture; no rash, ulcers, or subcutaneous nodules appreciated. Neurological: Cranial nerves grossly intact. Normal muscle strength, tone, and bulk. Reflexes, coordination, and sensory function within normal limits. No known gait impairment. Psychiatric: Normal mood and affect. Alert and oriented to person, place, and time. . Test 02/18/16 12:45 02/18/16 18:10 02/19/16 00:00 02/19/16 06:00 Erythrocyte Sedimentation Rate 25mm/hr (0-15) Prothrombin Time 10.1sec (8.1-12.5) Prothromb Time International Ratio 0.95ratio D-Dimer < 0.5mg/L (<0.50) Lactic Acid Level 1.1mmol/L (0.4-2.0) Magnesium Level 1.9mg/dL (1.6-2.6) Total Creatine Kinase 344U/L (21-232) Creatine Kinase MB 28.5ng/mL (0.0-10.4) Creatine Kinase MB % 8.3% (0.0-5.0) C-Reactive Protein 2.0mg/dL (0.0-0.5) Hold Ball Top Tube Received (Received) Hold Urine Received (Received) Neutrophils (%) (Auto) 63.7% (40-74) Lymphocytes (%) (Auto) 27.6% (14-46) Monocytes (%) (Auto) 7.2% (4-12) Eosinophils (%) (Auto) 0.9% (0-5) Basophils (%) (Auto) 0.2% (0-3) Total Bilirubin 0.5mg/dL (0.0-1.2) Aspartate Amino Transf (AST/SGOT) 41U/L (0-50) Alanine Aminotransferase (ALT/SGPT) 21U/L (0-44) Alkaline Phosphatase 47U/L (25-150) Total Protein 6.9g/dL (6.4-8.4) Albumin 3.7g/dL (3.4-5.0) Pro-B-Type Natriuretic Peptide 842.9pg/mL (0-86) Triglycerides Level 78mg/dL (0-149) Cholesterol Level 156mg/dL (100-199) LDL Cholesterol, Calculated 104.400mg/dL (0-99) VLDL Cholesterol 15.600mg/dL HDL Cholesterol 36mg/dL (>39) Cholesterol/HDL Ratio 4.33 (0.0-4.4) Test 02/20/16 04:15 White Blood Count 10.5th/mm3 (3.8-10.1) Red Blood Count 5.01mil/mm3 (4.40-5.80) Hemoglobin 14.4g/dL (13.8-17.2) Hematocrit 42.0% (41.0-50.0) Mean Corpuscular Volume 83.8fL (81-100) Mean Corpuscular Hemoglobin 28.7pg (27.0-35.0) Mean Corpuscular Hemoglobin Concent 34.3% (32.0-37.0) Red Cell Distribution Width 12.1% (12.3-15.4) Platelet Count 211bil/L (150-400) Sodium Level 142mEq/L (134-144) Potassium Level 4.9mEq/L (3.5-5.2) Chloride Level 104mEq/L (97-108) Carbon Dioxide Level 26mmol/L (18-29) Blood Urea Nitrogen 14mg/dL (6-20) Creatinine 0.90mg/dL (0.76-1.27) Estimat Glomerular Filtration Rate 100mL/min (>59) Glucose Level 110mg/dL (60-99) Calcium Level 9.1mg/dL (8.5-10.1) Troponin T 0.962ug/L (0.0-0.011) Microbiology Results Respiratory viral PCR negative. . Discharge Medications Discharge Medications Colchicine (Colcrys) 0.6 Mg Tablet 0.6 MG PO BID Prescribed by: JAYMIE JOHNSON DO Famotidine (Famotidine) 20 Mg Tablet 20 MG PO BID Prescribed by: JAYMIE JOHNSON DO Ibuprofen (Ibuprofen) 400 Mg Tablet 800 MG PO TID Prescribed by: JAYMIE JOHNSON DO Ibuprofen (Ibuprofen) 800 Mg Tablet 800 MG PO BID Prescribed by: JAYMIE JOHNSON DO Ibuprofen (Ibuprofen) 400 Mg Tablet 400 MG PO BID Prescribed by: JAYMIE JOHNSON DO Ibuprofen (Ibuprofen) 400 Mg Tablet 400 MG PO DAILY Prescribed by: JAYMIE JOHNSON DO Additional med instructions New medications: Colchicine 0.6 mg twice a day x3 months. Ibuprofen taper: 800 mg 3 times a day x1 week, 800 mg twice a day x1 week, 400 mg twice a day x1 week, and 400 mg once daily x1 week then stop. . Followup Plan Disposition: Home. . Follow-up plan Please follow-up closely with you primary care physician, Dr. Quan Benavides, within the next one week regarding your hospitalization and management of your pericarditis and referral to a dairy feed worker. [facility] is recommending a left heart catheterization to rule out ischemic heart disease for which you declined at this time. From a medical standpoint we recommend at the very least an exercise stress test with or without MIBI in the near future. Cardiology recommends continued medical management for pericarditis with colchicine 0.6 mg twice a day x3 months and an ibuprofen taper over the next 4 weeks. If you have any recurrent and worsening of chest pain or other symptoms of a heart attack including: pain in the area between shoulder blades, arm, chest, jaw, left arm, or upper abdomen, or dizziness, fatigue, lightheadedness, clammy skin, cold sweat or sweating, heartburn, indigestion, nausea, or vomiting DO NOT HESITATE and go immediately to the nearest ER or hospital. . Discharge Diet: Heart Healthy Discharge Activity: Limited until seen by PCP Follow-up Provider: [facility] Attending Statement The patient was seen and examined together with Dr. Johnson on 02-20-16 and I agree with the history, exam and plan as outlined in the note above. Jaymie Johnson DO Feb 20, 2016 17:41 Yolette Boone MD Feb 29, 2016 08:30 Jaymie Johnson DO Feb 20, 2016 17:41
== END 2016-02-20 15:27 | disposition home or self-care (01) ==
LOC: EDBD 11:32 → SED 11:32 → PCC 15:51 → INTOOBSV 15:51
PROVIDERS: ADMIT Hospitalist; ATTEND Hospitalist
DX: I30.9 Acute pericarditis, unspecified (principal); R07.9 Chest pain, unspecified; R51 Headache; R79.89 Other specified abnormal findings of blood chemistry; Z82.49 Family history of ischemic heart disease and other diseases of the circulatory system
CPT/HCPCS: 36415; 71010; 80048; 80053; 80061; 82550; 82553; 83605; 83735; 83880; 84484; 85025; 85027; 85379; 85610; 85651; 86140; 87633; 93005; 93970; 99285; C8929; G0378